=== PATIENT | male | born 1985 | race Caucasian/White ===

== ENCOUNTER 2023-08-08 01:47 | Emergency (ER) | payer OTHER ==
[~2023-08-08] VITALS: Ht 180.3 cm; Wt 95.3 kg
[2023-08-08 02:53] VITALS: TEMP 98.5
[2023-08-08 04:05] VITALS: BP 142/91; O2SAT 99
== END 2023-08-08 04:07 | disposition home or self-care (01) ==
LOC: ER 01:52
DX: U07.1 COVID-19 (principal); F17.200 Nicotine dependence, unspecified, uncomplicated; Z60.2 Problems related to living alone
CPT/HCPCS: 71045-TC; 86403-TC; 87070-TC

== ENCOUNTER 2024-06-15 08:41 | Emergency (ER) | payer OTHER ==
[~2024-06-15] VITALS: Ht 167.6 cm; Wt 90.7 kg
[2024-06-15 08:45] VITALS: BP 139/85; TEMP 98.1
[2024-06-15] MEDS ORDERED: COLC0.6C3 PO (09:18)
[2024-06-15] MEDS ORDERED: PRED20TA PO (09:18)
[2024-06-15] MEDS ORDERED: HYDR-4303 PO (09:18)
[2024-06-15 09:24] VITALS: O2SAT 99
== END 2024-06-15 09:24 | disposition home or self-care (01) ==
LOC: ER 08:59
DX: M10.071 Idiopathic gout, right ankle and foot (principal); F17.200 Nicotine dependence, unspecified, uncomplicated; Z60.2 Problems related to living alone

== ENCOUNTER 2025-01-15 12:16 | Emergency (ER) | payer OTHER ==
[~2025-01-15] VITALS: Ht 172.7 cm; Wt 90.7 kg
[~2025-01-15 12:16] MED LIST: COLC0.6C3 PO; HYDR-4303 PO; PRED20TA PO
[2025-01-15 13:17] VITALS: BP 143/101; TEMP 97.9
[2025-01-15] MEDS ORDERED: COLC0.6C3 PO (14:32)
[2025-01-15] MEDS ORDERED: PRED20TA PO (14:32)
[2025-01-15 14:47] VITALS: O2SAT 99
== END 2025-01-15 14:47 | disposition home or self-care (01) ==
LOC: ER 12:16
DX: M19.072 Primary osteoarthritis, left ankle and foot (principal); M10.072 Idiopathic gout, left ankle and foot; F17.200 Nicotine dependence, unspecified, uncomplicated; Z79.52 Long term (current) use of systemic steroids
CPT/HCPCS: 82962-TC